=== PATIENT | female | born 1965 | race Caucasian/White ===

== ENCOUNTER 2017-11-16 21:00 | Emergency (ER) | payer BC, OTHER ==
[~2017-11-16] VITALS: Ht 165.1 cm; Wt 86.2 kg
[~2017-11-16 21:00] MED LIST: DULO60CA7 PO; ESOM40CA PO; FURO-80 PO
--- NOTE | 2017-11-16 21:25 | NUR ---
ORTHOSTATIC BP LYIN/91 W/ HR 64 SITTIN/85 W/ HR 63 STANDI/82 W/ HR 81 DR CRAIG NOTIFED
[2017-11-16 21:40] VITALS: BP 178/91
--- NOTE | 2017-11-16 21:50 | ER.PDOC ---
General Chief Complaint: Syncope Stated Complaint: LIGHTHEADEDNESS TRAVEL OUT OF US: No Time seen by MD: 21:42 Source: patient Exam Limitations: no limitations History of Present Illness Initial Comments Gen weakness, light headed. Difficulty getting a full breath in. Occas numbness and tingling arms and handsl. No chest discomfort. No nausea, no diaph. Admits increased stress on job. Timing/Duration: other (1 month. Not getting worse.) Severity: mild, moderate Associated Symptoms: denies symptoms Allergies: Coded Allergies: No Known Allergies (Unverified , 02/22/16) Home Meds Reported Medications Esomeprazole Magnesium (NEXIUM) 40 Mg Capsule.dr, 1 CAP PO DAILY, #30 CAP 5 Refills 02/22/16 Duloxetine Hcl (CYMBALTA) 60 Mg Capsule.dr, 1 CAP PO DAILY, #90 CAP 3 Refills 02/22/16 Furosemide (LASIX) 40 Mg Tablet, 1 TAB PO DAILY, #90 TAB 1 Refill 02/22/16 Past Medical History Medical History: hypertension Surgical History: appendectomy, hysterectomy, other LMP (females 10-50): hysterectomy Social History Smoking: non-smoker Alcohol Use: occassionally Drug Use: none Review of Systems Constitutional: see HPI EENTM: no symptoms reported Respiratory: see HPI; denies cough Cardiovascular: see HPI; denies chest pain Gastrointestinal: no symptoms reported Genitourinary: no symptoms reported Psychiatric/Neurological: see HPI, anxiety All Other Systems: Reviewed and Negative Physical Exam General Appearance: No Apparent Distress, Anxious EENT: eyes nml inspection, nml ENT inspection Neck: Non-Tender, Full Range of Motion, Normal Inspection Respiratory: chest non-tender, lungs clear, normal breath sounds (Pt. 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0 % (0.2-0.6) Total Hemoglobin 13.8 % (13.5-17.5) Total Oxygen Concentration 19.2 % (13.5-17.5) Lactic Acid (Blood Gas) 1.3 MMOL/L (0.5-1.0) Blood Gas Temperature 37.0 FiO2 0.21 % (20-101) Bicarbonate 22.4 mmol/L (23-27) White Blood Count 8.0 10^3/uL (4.5-11.0) Red Blood Count 4.17 10^6/uL (4.00-5.20) Hemoglobin 12.6 g/dL (12.0-15.0) Hematocrit 37.7 % (36.0-46.0) Mean Corpuscular Volume 90.4 fL (78-100) Mean Corpuscular Hemoglobin 30.2 pg (26-34) Mean Corpuscular Hemoglobin Concent 33.4 g/dL (33-37) Red Cell Distribution Width 12.6 % (11.5-14.5) Platelet Count 263 10^3/uL (150-400) Mean Platelet Volume 11.1 fL (7.8-11.0) Neutrophils (%) (Auto) 63.3 % (41.0-85.0) Lymphocytes (%) (Auto) 27.7 % (24.0-44.0) Monocytes (%) (Auto) 6.5 % (5.0-12.0) Neutrophils # (Auto) 5.0 10^3/uL (1.8-7.7) Lymphocytes # (Auto) 2.2 10^3/uL (1.0-4.8) Monocytes # (Auto) 0.5 10^3/uL (0.3-0.8) Absolute Immature Granulocyte (auto 0.02 10^3 u/L (0-2) Eosinophils % 2.1 % (0.0-5.0) Basophils % 0.1 % (0.0-0.2) Basophils # 0.0 10^3/uL (0.0-0.1) Eosinophil Count 0.2 10^3/uL (0.0-0.2) Prothrombin Time 9.3 SEC (9.8-11.9) Prothrombin Time INR (Non-Therap) 0.9 Sodium Level 141 mmol/L (132-145) Potassium Level 3.2 mmol/L (3.6-5.2) Chloride Level 102.0 mmol/L (96-109) Carbon Dioxide Level 28.2 mmol/L (20.0-32) Anion Gap 14.0 Blood Urea Nitrogen 14 mg/dL (7-18) Creatinine 0.93 mg/dL (0.59-1.40) Estimated GFR () 76.6 (>/=60) BUN/Creatinine Ratio 15.0 Glucose Level 123 mg/dL (70-110) Calcium Level 9.0 mg/dL (8.4-10.5) Total Bilirubin 0.4 mg/dL (0.2-1.0) Aspartate Amino Transf (AST/SGOT) 59 U/L (0-35) Alanine Aminotransferase (ALT/SGPT) 106 U/L (12-78) Alkaline Phosphatase 77 U/L (50-136) Troponin I < 0.02 ng/mL (0.00-0.05) Total Protein 7.4 g/dL (6.4-8.2) Albumin 3.6 g/dL (3.4-5.0) Globulin 3.8 Percent Immature Gran (Cell Imm) 0.30 % (0.00-0.50) Urine Collection Type UNKNOWN Urine Color YELLOW (YELLOW) Urine Appearance CLEAR (CLEAR) Urine Bilirubin NEGATIVE MG/DL (NEGATIVE) Urine Ketones NEGATIVE (NEGATIVE) Urine Specific [place] 1.015 (1.005-1.035) Urine pH 7 (5.0-6.0) Urine Protein NEGATIVE (NEGATIVE) Urine Urobilinogen NORMAL (NEGATIVE) Urine Nitrate NEGATIVE (NEGATIVE) Urine Leukocyte Esterase NEGATIVE (NEGATIVE) Urine Blood NEGATIVE (NEGATIVE) Urine Glucose NORMAL (NEGATIVE) Progress Progress Troponin, EKG nml. Atypical prsentation for cardiac etiology. More typical for anxiety. ABG c/w hyperventilation with resp alkylosis. Remainder labs and UA nml. EKG/XRAY/CT/US EKG: NSR EKG Comments: 63/min. Nml axis, nml EKG. XRAY: chest XRAY Comments: nml Course Vitals & review Data Vital Sign - Last 24 Hours 11/16/17 11/16/17 11/16/17 11/16/17 21:34 21:34 21:40 22:47 Temp 98.1 98.1 98.1 98.1 98.1 98.1 Pulse 67 67 67 62 Resp 16 16 16 16 B/P (MAP) 178/91 (120) 132/77 (95) Pulse Ox 97 97 98 O2 Delivery Room Air Room Air Room Air Laboratory Tests Test 11/16/17 21:45 11/16/17 21:52 11/16/17 22:43 Blood Gas Sample Site LEFT RADIAL ARTERY Blood Gas pH 7.718 Blood Gas PCO2 17.4 mmHg Blood Gas PO2 116.1 mmHg Blood Gas HCO3 21.9 mmol/L Blood Gas Base Excess 4.7 mmol/L Quentin Test POSITIVE Arterial Blood Oxygen Saturation 98.5 % Deoxyhemoglobin 1.5 % Carboxyhemoglobin 0.4 % Methemoglobin 0.0 % Total Hemoglobin 13.8 % Total Oxygen Concentration 19.2 % Lactic Acid (Blood Gas) 1.3 MMOL/L Blood Gas Temperature 37.0 FiO2 0.21 % Bicarbonate 22.4 mmol/L White Blood Count 8.0 10^3/uL Red Blood Count 4.17 10^6/uL Hemoglobin 12.6 g/dL Hematocrit 37.7 % Mean Corpuscular Volume 90.4 fL Mean Corpuscular Hemoglobin 30.2 pg Mean Corpuscular Hemoglobin Concent 33.4 g/dL Red Cell Distribution Width 12.6 % Platelet Count 263 10^3/uL Mean Platelet Volume 11.1 fL Neutrophils (%) (Auto) 63.3 % Lymphocytes (%) (Auto) 27.7 % Monocytes (%) (Auto) 6.5 % Neutrophils # (Auto) 5.0 10^3/uL Lymphocytes # (Auto) 2.2 10^3/uL Monocytes # (Auto) 0.5 10^3/uL Absolute Immature Granulocyte (auto 0.02 10^3 u/L Eosinophils % 2.1 % Basophils % 0.1 % Basophils # 0.0 10^3/uL Eosinophil Count 0.2 10^3/uL Prothrombin Time 9.3 SEC Prothrombin Time INR (Non-Therap) 0.9 Sodium Level 141 mmol/L Potassium Level 3.2 mmol/L Chloride Level 102.0 mmol/L Carbon Dioxide Level 28.2 mmol/L Anion Gap 14.0 Blood Urea Nitrogen 14 mg/dL Creatinine 0.93 mg/dL Estimated GFR () 76.6 BUN/Creatinine Ratio 15.0 Glucose Level 123 mg/dL Calcium Level 9.0 mg/dL Total Bilirubin 0.4 mg/dL Aspartate Amino Transf (AST/SGOT) 59 U/L Alanine Aminotransferase (ALT/SGPT) 106 U/L Alkaline Phosphatase 77 U/L Troponin I < 0.02 ng/mL Total Protein 7.4 g/dL Albumin 3.6 g/dL Globulin 3.8 Percent Immature Gran (Cell Imm) 0.30 % Urine Collection Type UNKNOWN Urine Color YELLOW Urine Appearance CLEAR Urine Bilirubin NEGATIVE MG/DL Urine Ketones NEGATIVE Urine Specific [place] 1.015 Urine pH 7 Urine Protein NEGATIVE Urine Urobilinogen NORMAL Urine Nitrate NEGATIVE Urine Leukocyte Esterase NEGATIVE Urine Blood NEGATIVE Urine Glucose NORMAL Departure Time of Disposition: 22:57 Disposition: 01 HOME, SELF-CARE Impression: Primary Impression: Anxiety Additional Impression: Hyperventilation syndrome Condition: Stable Patient Instructions: Anxiety and Panic Attacks Referrals: KRISS ONEAL MD (PCP) PRIMARY CARE PROVIDER Additional Instructions: No caffeine or other stimulant drugs or medications. See your doctor in 2 to 3 days for recheck. Return if worse. Duration or Time Spent with Pa: 120 CRESCENCIO CRAIG DO Nov 16, 2017 21:50
[2017-11-16 22:05] LABS: BASOPHIL % 0.1 % (0.0-0.2); EOSINOPHIL # 0.2 10^3/uL (0.0-0.2); EOSINOPHIL % 2.1 % (0.0-5.0); HEMOGLOBIN 12.6 g/dL (12.0-15.0); LYMPHOCYTES # 2.2 10^3/uL (1.0-4.8); LYMPHOCYTES % 27.7 % (24.0-44.0); MEAN CELL HGB 30.2 pg (26-34); MEAN CELL HGB CONCENTRATION 33.4 g/dL (33-37); MEAN CORP VOLUME 90.4 fL (78-100); MEAN PLATELET VOLUME 11.1 fL (7.8-11.0); MONOCYTES # 0.5 10^3/uL (0.3-0.8); MONOCYTES % 6.5 % (5.0-12.0); NEUTROPHILS % 63.3 % (41.0-85.0); RED CELL DISTRIBUTION WIDTH 12.6 % (11.5-14.5)
--- NOTE | 2017-11-16 22:16 | DIREP ---
PROCEDURE:CHEST 1 VIEW COMPARISON:[facility], CR, XRAY CHEST SINGLE VW, 02/22/2016, 06:19 PM. INDICATIONS:SOB FINDINGS: LUNGS/PLEURA:No significant pulmonary parenchymal abnormalities. No effusions. VASCULATURE:Normal. Unremarkable pulmonary vasculature. CARDIAC:Normal. No cardiac silhouette abnormality or cardiomegaly. MEDIASTINUM:Normal. No visible mass or adenopathy. BONES:Normal. No fracture or visible bony lesion. OTHER:Negative. CONCLUSION:No acute cardiopulmonary findings. Dictated by: Camacho Bautista M.D. on 11/16/2017 at 10:14 PM
[2017-11-16 22:21] LABS: ABG PCO2 17.4 mmHg (35.0-45.0); ABG PH 7.718 (7.350-7.450); BE(B) 4.7 mmol/L (-2.0-2.0); HCO3act 21.9 mmol/L (22.0-26.0); pO2 116.1 mmHg (75.0-100.0)
[2017-11-16 22:29] LABS: ALANINE AMINOTRANSFERASE(ML) 106 U/L (12-78); ALKALINE PHOSPHATASE 77 U/L (50-136); ASPARTATE AMINO TRANSFERASE 59 U/L (0-35); CARBON DIOXIDE 28.2 mmol/L (20.0-32); GLUCOSE 123 mg/dL (70-110)
--- NOTE | 2017-11-16 22:30 | NUR ---
RESTROOM TAKEN TO RESTROOM VIA WHEELCHAIR, STATES SHE IS FEELING A LITTLE BIT BETTER NOW THAT SHE HAS RESTED IN THE BED. TAKEN BACK TO ROOM, RECONNECTED TO BEDSIDE MONITOR
--- NOTE | 2017-11-16 22:31 | PCM.EKG ---
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
[2017-11-16 22:47] VITALS: BP 132/77
[2017-11-16 22:49] LABS: BILIRUBIN,URINE NEGATIVE (NEGATIVE); UROBILINOGEN,URINE NORMAL (NEGATIVE)
[2017-11-16 22:50] LABS: APPEARANCE,URINE CLEAR (CLEAR); UA COLOR YELLOW (YELLOW)
[2017-11-16] MEDS ORDERED: ATIVAN PO STA (22:55)
[2017-11-16] MEDS ORDERED: ATIVAN ONE (23:27)
[2017-11-17 00:05] VITALS: BP 132/77
== END 2017-11-16 23:32 | disposition home or self-care (01) ==
LOC: ER 21:00
DX: F41.9 Anxiety disorder, unspecified (principal); F45.8 Other somatoform disorders; R79.1 Abnormal coagulation profile; I10 Essential (primary) hypertension; Z90.710 Acquired absence of both cervix and uterus; Z90.49 Acquired absence of other specified parts of digestive tract; Z79.899 Other long term (current) drug therapy
CPT/HCPCS: 36415; 71045; 80053; 81002; 82803; 84484; 85025; 85610; 93005; 99285

== ENCOUNTER 2017-12-01 18:10 | Emergency (ER) | payer OTHER, BC ==
[~2017-12-01] VITALS: Ht 165.1 cm; Wt 86.2 kg
[2017-12-01 18:26] VITALS: BP 159/92
--- NOTE | 2017-12-01 18:30 | NUR ---
BLANKET WARM BLANKETS WERE PROVIDED TO PATIENT
[2017-12-01] MEDS ORDERED: NS 1000ML 1,000 ML IV STA (18:42)
[2017-12-01 18:45] VITALS: BP 166/104
[2017-12-01] MEDS ORDERED: NS 1000ML 1,000 ML ONE (18:46)
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
--- NOTE | 2017-12-01 18:56 | PCM.EKG ---
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
[2017-12-01 18:57] LABS: BASOPHIL % 0.3 % (0.0-0.2); EOSINOPHIL # 0.2 10^3/uL (0.0-0.2); EOSINOPHIL % 1.7 % (0.0-5.0); HEMOGLOBIN 13.4 g/dL (12.0-15.0); LYMPHOCYTES # 1.8 10^3/uL (1.0-4.8); LYMPHOCYTES % 20.6 % (24.0-44.0); MEAN CELL HGB 30.2 pg (26-34); MEAN CELL HGB CONCENTRATION 33.8 g/dL (33-37); MEAN CORP VOLUME 89.2 fL (78-100); MEAN PLATELET VOLUME 11.5 fL (7.8-11.0); MONOCYTES # 0.5 10^3/uL (0.3-0.8); MONOCYTES % 5.5 % (5.0-12.0); NEUTROPHIL # 6.2 10^3/uL (1.8-7.7); NEUTROPHILS % 71.8 % (41.0-85.0); RED CELL DISTRIBUTION WIDTH 12.9 % (11.5-14.5); WHITE BLOOD CELL 8.7 10^3/uL (4.5-11.0)
[2017-12-01 19:00] VITALS: BP 166/102
[2017-12-01 19:11] LABS: CALCIUM 9.5 mg/dL (8.4-10.5); CARBON DIOXIDE 27.6 mmol/L (20.0-32)
[2017-12-01 19:15] VITALS: BP 178/103
--- NOTE | 2017-12-01 19:20 | NUR ---
CT PT. GOING TO CT
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
--- NOTE | 2017-12-01 20:30 | NUR ---
C-Collar C-Collar was dismissed with confirmation by CT and Dr. Thorne
--- NOTE | 2017-12-01 20:41 | NUR ---
IV IV removed, tip intact. Cotton ball placed over IV site with coban to secure cotton. Instructed pt. to remove when she arrives home. Pt. expressed understand
[2017-12-01 21:45] VITALS: BP 178/103
== END 2017-12-01 20:45 | disposition home or self-care (01) ==
LOC: EDBD 18:10 → ER 18:10
DX: S20.219A Contusion of unspecified front wall of thorax, initial encounter (principal); S00.93XA Contusion of unspecified part of head, initial encounter; S10.93XA Contusion of unspecified part of neck, initial encounter; S30.1XXA Contusion of abdominal wall, initial encounter; R79.1 Abnormal coagulation profile; K21.9 Gastro-esophageal reflux disease without esophagitis; I10 Essential (primary) hypertension; Z79.899 Other long term (current) drug therapy; Z90.49 Acquired absence of other specified parts of digestive tract; Z90.710 Acquired absence of both cervix and uterus; V89.9XXA Person injured in unspecified vehicle accident, initial encounter; Y93.89 Activity, other specified; Y92.488 Other paved roadways as the place of occurrence of the external cause; Y99.8 Other external cause status
CPT/HCPCS: 36415; 70450; 71260; 72125; 74177; 80053; 84484; 85025; 85610; 85730; 93005; 99285; J7030; Q9965

== ENCOUNTER 2019-06-05 03:33 | Emergency (ER) | payer BC, OTHER ==
[~2019-06-05] VITALS: Ht 165.1 cm; Wt 81.6 kg
--- NOTE | 2019-06-05 03:42 | ER.PDOC ---
General Chief Complaint: Requesting Medical Care Stated Complaint: DIZZINESS, NAUSEA Time seen by MD: 03:42 Source: patient Exam Limitations: no limitations History of Present Illness Initial Comments dizziness like the room is spinning to the left, worse with head movement or movement of the eyes, no lightheadedness like fainting, no chest pain or palpita tions, no ear pain or ringing in the ears or hearing loss, no headache. no weakness or sensation change, symptoms since 8am yesterday Occurred: other Associated Symptoms: spinning Usually: walks w/o assistance Worsened By: movement of head Allergies: Coded Allergies: No Known Allergies (Unverified , 02/22/16) Home Meds Reported Medications Esomeprazole Magnesium (NEXIUM) 40 Mg Capsule.dr, 1 CAP PO DAILY, #30 CAP 5 Refills 02/22/16 Duloxetine Hcl (CYMBALTA) 60 Mg Capsule.dr, 1 CAP PO DAILY, #90 CAP 3 Refills 02/22/16 Furosemide (LASIX) 40 Mg Tablet, 1 TAB PO DAILY, #90 TAB 1 Refill 02/22/16 Past Medical History Surgical History: appendectomy, hysterectomy Social History Drug Use: none Review of Systems Constitutional: denies chills, denies fever Eyes: denies blindness Ears: dizziness; denies pain Nose: denies congestion Mouth: denies pain Throat: denies neck stiffness Respiratory: denies shortness of breath Cardiovascular: denies chest pain, denies irregular heart rate, denies lightheadedness, denies palpitations, denies syncope Gastrointestinal: denies abdominal pain, denies diarrhea; nausea; denies vomiting Genitourinary: denies pain Musculoskeletal: denies neck pain Physical Exam General Appearance: alert, no distress EENT: PERRL, nystagmus Neck: supple Respiratory: no resp distress, breath sounds nml CVS: reg rate & rhythm, heart sounds.nml Abdomen: non-tender Skin: color nml Extremities: non-tender Neuro/Psych: nml orientation Cranial Nerves: nml as tested, no evidence of acute CVA Cerebellar: nml as tested Sensorimotor: nml motor Results/Orders Results/Orders Orders - GRICELDA RAINES MD Cbc With Auto Diff (06/05/19 03:50) Comprehensive Metabolic Panel (06/05/19 03:50) Creatine Kinase (06/05/19 03:50) Creatine Kinase Mb (06/05/19 03:50) Troponin I (06/05/19 03:50) Xr Chest 1v (06/05/19 03:50) Ekg-Routine (06/05/19 03:50) Saline Lock (06/05/19 03:50) Ct Head Wo Contrast (06/05/19 03:50) Diphenhydramine Hcl (Benadryl) (06/05/19 03:50) Ondansetron Hcl/Pf (Zofran) (06/05/19 04:00) Vital Signs Date Time Temp Pulse Resp B/P (MAP) Pulse Ox O2 Delivery O2 Flow Rate FiO2 06/05/19 03:47 97.6 54 16 06/05/19 03:47 97.6 54 16 179/87 (117) 99 Room Air 06/05/19 03:47 97.6 54 16 99 Administered Medications Medications (Trade) Dose Ordered Sig/Jeramie Route PRN Reason Start Time Stop Time Status Last Admin Dose Admin Diphenhydramine HCl (Benadryl) 25 mg STAT STAT IV 06/05/19 03:50 06/05/19 03:51 UNV 06/05/19 04:03 25 MG Ondansetron HCl (Zofran) 4 mg Q4H PRN IV NAUSEA / VOMITING 06/05/19 04:00 07/05/19 03:59 UNV 06/05/19 04:03 4 MG Laboratory Tests Test 06/05/19 03:58 White Blood Count 11.6 10^3/uL (4.5-11.0) H Red Blood Count 4.52 10^6/uL (4.00-5.20) Hemoglobin 13.1 g/dL (12.0-15.0) Hematocrit 39.7 % (36.0-46.0) Mean Corpuscular Volume 87.8 fL (78-100) Mean Corpuscular Hemoglobin 29.0 pg (26-34) Mean Corpuscular Hemoglobin Concent 33.0 g/dL (33-36.5) Red Cell Distribution Width 12.3 % (11.5-14.5) Platelet Count 310 10^3/uL (150-400) Mean Platelet Volume 11.9 fL (7.8-11.0) H Neutrophils (%) (Auto) 77.3 % (41.0-85.0) Lymphocytes (%) (Auto) 15.0 % (24.0-44.0) L Monocytes (%) (Auto) 6.4 % (5.0-12.0) Neutrophils # (Auto) 9.0 10^3/uL (1.8-7.7) H Lymphocytes # (Auto) 1.75 10^3/uL1 (1.0-4.8) Monocytes # (Auto) 0.7 10^3/uL (0.3-0.8) Absolute Immature Granulocyte (auto 0.03 10^3 u/L (0-2) Absolute Eosinophils (auto) 0.1 10^3/uL (0.0-0.2) Immature Granulocytes % 0.30 % (0.00-0.50) Eosinophils % 0.6 % (0.0-5.0) Basophils % 0.4 % (0.0-0.2) H Basophils # 0.1 10^3/uL (0.0-0.1) Sodium Level 142 mmol/L (132-145) Potassium Level 3.8 mmol/L (3.6-5.2) Chloride Level 104.0 mmol/L (96-109) Carbon Dioxide Level 31.7 mmol/L (20.0-32) Anion Gap 10.1 Blood Urea Nitrogen 17 mg/dL (7-18) Creatinine 0.94 mg/dL (0.59-1.40) Estimated GFR () 75.4 (>/=60) Est GFR (CKD-EPI)(Non-Afr Mongolian) 62.3 (>/=60) BUN/Creatinine Ratio 18.0 Glucose Level 128 mg/dL (70-110) H Calcium Level 9.9 mg/dL (8.4-10.5) Total Bilirubin 0.5 mg/dL (0.2-1.0) Aspartate Amino Transferase (AST) 10 U/L (0-35) Alanine Aminotransferase (ALT) 23 U/L (12-78) Alkaline Phosphatase 68 U/L (50-136) Total Creatine Kinase 52 U/L (26-192) Creatine Kinase MB 1.3 ng/mL (0.5-3.6) Troponin I < 0.02 ng/mL (0.00-0.05) Total Protein 6.7 g/dL (6.4-8.2) Albumin 3.5 g/dL (3.4-5.0) Globulin 3.2 Departure Time of Disposition: 04:32 Disposition: 01 HOME, SELF-CARE Impression: Primary Impression: Vertigo Additional Impression: Bradycardia Condition: Stable Patient Instructions: Bradycardia, Vertigo Referrals: PARISA KU DO (PCP) PRIMARY CARE PROVIDER Additional Instructions: return for any worsening symptoms Duration or Time Spent with Pa: 20 Problem Qualifiers GRICELDA RAINES MD Jun 05, 2019 03:42
[2019-06-05 03:47] VITALS: BP 179/87
[2019-06-05] MEDS ORDERED: BENADRYL IV STA (03:50)
[2019-06-05] MEDS ORDERED: BENADRYL ONE (03:58)
[2019-06-05] MEDS ORDERED: ZOFRAN ONE (03:58)
[2019-06-05] MEDS ORDERED: ZOFRAN IV PRN (04:00)
--- NOTE | 2019-06-05 04:03 | NUR ---
TO CT PATIENT TO CT VIA STRETCHER WITH MUKESH,CT
[2019-06-05 04:11] LABS: BASOPHIL # 0.1 10^3/uL (0.0-0.1); BASOPHIL % 0.4 % (0.0-0.2); EOSINOPHIL # 0.1 10^3/uL (0.0-0.2); EOSINOPHIL % 0.6 % (0.0-5.0); LYMPHOCYTES # 1.75 10^3/uL1 (1.0-4.8); MONOCYTES # 0.7 10^3/uL (0.3-0.8); MONOCYTES % 6.4 % (5.0-12.0); NEUTROPHILS % 77.3 % (41.0-85.0); PLATELET COUNT 310 10^3/uL (150-400); RED CELL DISTRIBUTION WIDTH 12.3 % (11.5-14.5)
--- NOTE | 2019-06-05 04:21 | DIREP ---
PROCEDURE:CT HEAD OR BRAIN W/O CONTRAST COMPARISON:[facility], CT, CT HEAD BRAIN W/O CONTRAST, 12/01/2017, 07:29 PM. INDICATIONS:dizziness TECHNIQUE:CT images were created without intravenous contrast. FINDINGS: VENTRICLES:The ventricles are normal in size and configuration. CEREBRUM:Normal cerebral morphology with appropriate travis white matter differentiation. CEREBELLUM:Negative. BRAINSTEM:Negative. BASAL CISTERNS:Negative. HEMORRHAGE:No MASS LESION:No ACUTE INFARCT:No SKULL:Normal. SINUSES:Normal. OTHER:None CONCLUSION:No acute intracranial findings. Dictated by: Camacho Bautista M.D. on 06/05/2019 at 04:18 AM
--- NOTE | 2019-06-05 04:22 | DIREP ---
PROCEDURE:CHEST 1 VIEW COMPARISON:[facility], CR, XRAY CHEST SINGLE VW, 11/16/2017, 09:34 PM. [facility], CR, XRAY CHEST SINGLE VW, 02/22/2016, 06:19 PM. INDICATIONS:dizziness FINDINGS: LUNGS/PLEURA:No significant pulmonary parenchymal abnormalities. No effusions. VASCULATURE:Normal. Unremarkable pulmonary vasculature. CARDIAC:Normal. No cardiac silhouette abnormality or cardiomegaly. MEDIASTINUM:Normal. No visible mass or adenopathy. BONES:Normal. No fracture or visible bony lesion. OTHER:Negative. CONCLUSION:No acute cardiopulmonary findings. Dictated by: Camacho Bautista M.D. on 06/05/2019 at 04:20 AM
--- NOTE | 2019-06-05 04:25 | PCM.EKG ---
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
[2019-06-05 04:29] LABS: ALANINE AMINOTRANSFERASE(ML) 23 U/L (12-78); ALKALINE PHOSPHATASE 68 U/L (50-136); ASPARTATE AMINO TRANSFERASE 10 U/L (0-35); CALCIUM 9.9 mg/dL (8.4-10.5); CARBON DIOXIDE 31.7 mmol/L (20.0-32); GLUCOSE 128 mg/dL (70-110)
[2019-06-05 04:37] VITALS: BP 156/92
== END 2019-06-05 04:37 | disposition home or self-care (01) ==
LOC: ER 03:33
DX: R42 Dizziness and giddiness (principal); R00.1 Bradycardia, unspecified
CPT/HCPCS: 36415; 70450; 71045; 80053; 82550; 82553; 84484; 85025; 93005; 96374; 96375; 99285; J1200; J2405

== ENCOUNTER 2019-10-25 02:54 | Emergency (ER) | payer BC ==
[~2019-10-25] VITALS: Ht 165.1 cm; Wt 79.4 kg
[2019-10-25 03:09] VITALS: BP 125/77
--- NOTE | 2019-10-25 03:26 | ER.PDOC ---
General Chief Complaint: General Complaint Stated Complaint: HIGH BLOOD SUGAR Time seen by MD: 03:10 Source: patient Exam Limitations: no limitations History of Present Illness Initial Comments Acute onset at work of confusion, light-headedness. Noted tingling in B hands. No speech abnormalities. No weakness. Light-headedness worsened upon standing. She checked her blood sugar and noted it to be 281. States symptoms lasted approx 30 min before gradually abating. Now feels only slightly light-headed and "just not quite right". States she is not taking her med for NIDDM because she was prescribed a different medication which required pre-approval and she will fill it in AM. Hx "some kind of heart rhythm issue". Due for Echo with Dr. Vásquez. Recently increased Atenolol from 25mg to 50mg. 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) Severity: moderate Associated Symptoms: light headness, sense of confusion Decreased Ability to Stand: off balance Usually: walks w/o assistance Worsened By: changing position Prior symptoms/Treatment: No Similar symptoms previous; Recenly Seen, Treated by Doctor Allergies: Coded Allergies: No Known Allergies (Unverified , 02/22/16) Home Meds Reported Medications Esomeprazole Magnesium (NEXIUM) 40 Mg Capsule.dr, 1 CAP PO DAILY, #30 CAP 5 Refills 02/22/16 Duloxetine Hcl (CYMBALTA) 60 Mg Capsule.dr, 1 CAP PO DAILY, #90 CAP 3 Refills 02/22/16 Furosemide (LASIX) 40 Mg Tablet, 1 TAB PO DAILY, #90 TAB 1 Refill 02/22/16 Past Medical History Medical History: cardiac problems, diabetes Surgical History: appendectomy, hysterectomy Social History Alcohol Use: none Drug Use: none Review of Systems Constitutional: no symptoms reported Eyes: no symptoms reported Ears: no symptoms reported Nose: no symptoms reported Mouth: no symptoms reported Throat: no symptoms reported Respiratory: no symptoms reported Cardiovascular: no symptoms reported Gastrointestinal: no symptoms reported Genitourinary: no symptoms reported Musculoskeletal: no symptoms reported Skin: no symptoms reported Psychiatric/Neurological: see HPI Physical Exam General Appearance: alert, no distress EENT: nml eye inspection, PERRL, no nystagmus, nml ENT inspection, pharynx nml, TM's nml Neck: supple Respiratory: no resp distress, breath sounds nml CVS: reg rate & rhythm, heart sounds.nml Abdomen: non-tender, no organomegaly, no distention Skin: color nml, no rash, warm/dry Extremities: non-tender, nml ROM, no pedal edema Neuro/Psych: nml orientation, nml speech/cognition, nml mood/affect Cranial Nerves: nml as tested, no evidence of acute CVA Cerebellar: nml as tested Sensorimotor: nml motor, nml sensation Results/Orders Results/Orders Orders - MAICO HATCH MD Cbc With Auto Diff (10/25/19 03:23) Comprehensive Metabolic Panel (10/25/19 03:23) Creatine Kinase (10/25/19 03:23) Creatine Kinase Mb (10/25/19 03:23) Troponin I (10/25/19 03:23) Ekg-Routine (10/25/19 03:23) Saline Lock (10/25/19 03:23) Ct Head Wo Contrast (10/25/19 03:23) Insulin Regular, Human (Humulin R) (10/25/19 03:30) Bedside Glucose (10/25/19 03:06) Vital Signs Date Time Temp Pulse Resp B/P (MAP) Pulse Ox O2 Delivery O2 Flow Rate FiO2 10/25/19 04:10 98.0 51 16 110/62 (78) 97 Room Air 10/25/19 03:09 98.0 56 16 100 10/25/19 03:09 98.0 56 16 125/77 (93) 100 Room Air 10/25/19 03:09 98.0 56 16 Administered Medications Medications (Trade) Dose Ordered Sig/Jeramie Route PRN Reason Start Time Stop Time Status Last Admin Dose Admin Insulin Human Regular (Humulin R) 4 unit OT ONCE IV 10/25/19 03:30 10/25/19 03:31 UNV 10/25/19 03:38 4 UNIT Laboratory Tests Test 10/25/19 03:06 10/25/19 03:32 POC Glucose 213 (70 - 110) H White Blood Count 10.1 10^3/uL (4.5-11.0) Red Blood Count 3.73 10^6/uL (4.00-5.20) L Hemoglobin 12.0 g/dL (12.0-15.0) Hematocrit 34.0 % (36.0-46.0) L Mean Corpuscular Volume 91.2 fL (78-100) Mean Corpuscular Hemoglobin 32.2 pg (26-34) Mean Corpuscular Hemoglobin Concent 35.3 g/dL (33-36.5) Red Cell Distribution Width 12.4 % (11.5-14.5) Platelet Count 297 10^3/uL (150-400) Mean Platelet Volume 11.7 fL (7.8-11.0) H Neutrophils (%) (Auto) 66.6 % (41.0-85.0) Lymphocytes (%) (Auto) 24.6 % (24.0-44.0) Monocytes (%) (Auto) 6.4 % (5.0-12.0) Neutrophils # (Auto) 6.7 10^3/uL (1.8-7.7) Lymphocytes # (Auto) 2.48 10^3/uL1 (1.0-4.8) Monocytes # (Auto) 0.7 10^3/uL (0.3-0.8) Absolute Immature Granulocyte (auto 0.02 10^3 u/L (0-2) Absolute Eosinophils (auto) 0.1 10^3/uL (0.0-0.2) Immature Granulocytes % 0.20 % (0.00-0.50) Eosinophils % 1.4 % (0.0-5.0) Basophils % 0.8 % (0.0-0.2) H Basophils # 0.1 10^3/uL (0.0-0.1) Sodium Level 134 mmol/L (132-145) Potassium Level 2.5 mmol/L (3.6-5.2) L Chloride Level 94.0 mmol/L (96-109) L Carbon Dioxide Level 31.6 mmol/L (20.0-32) Anion Gap 10.9 Blood Urea Nitrogen 17 mg/dL (7-18) Creatinine 1.26 mg/dL (0.59-1.40) Estimated GFR () 53.5 (>/=60) Est GFR (CKD-EPI)(Non-Afr [place]ican) 44.3 (>/=60) BUN/Creatinine Ratio 13.0 Glucose Level 207 mg/dL (70-110) H Calcium Level 9.4 mg/dL (8.4-10.5) Total Bilirubin 0.3 mg/dL (0.2-1.0) Aspartate Amino Transferase (AST) 20 U/L (0-35) Alanine Aminotransferase (ALT) 37 U/L (12-78) Alkaline Phosphatase 62 U/L (50-136) Total Creatine Kinase 72 U/L (26-192) Creatine Kinase MB 0.7 ng/mL (0.5-3.6) Troponin I < 0.02 ng/mL (0.00-0.05) Total Protein 7.5 g/dL (6.4-8.2) Albumin 3.6 g/dL (3.4-5.0) Globulin 3.9 Progress Progress Pt's heart rate persistently 49-55. Suspect adverse reaction to recent increase in Atenolol dose. Will recommend reducing dose to 25mg and follow up with Dr. Vásquez EKG/XRAY/CT/US EKG Comments: Sinus sam 56.TWI III Departure Time of Disposition: 04:31 Disposition: 01 HOME, SELF-CARE Impression: Primary Impression: Adverse reaction to beta-milagros Additional Impression: Hypokalemia Condition: Stable Referrals: MENDOZA KOEHLER MD (PCP) PRIMARY CARE PROVIDER Additional Instructions: Reduce Atenolol to 25mg/dose. Follow up with Dr. Vásquez and PCP Duration or Time Spent with Pa: 25 Problem Qualifiers Primary Impression: Adverse reaction to beta-milagros Encounter type: initial encounter Qualified Codes: T44.7X5A - Adverse effect of beta-adrenoreceptor antagonists, initial encounter MAICO HATCH MD Oct 25, 2019 03:26
--- NOTE | 2019-10-25 03:28 | NUR ---
CT CALLED CALLED [facility] FOR CT HEAD
[2019-10-25] MEDS ORDERED: HUMULIN R IV ONE (03:30)
[2019-10-25] MEDS ORDERED: HUMULIN R ONE (03:32)
[2019-10-25 03:48] LABS: BASOPHIL # 0.1 10^3/uL (0.0-0.1); BASOPHIL % 0.8 % (0.0-0.2); EOSINOPHIL # 0.1 10^3/uL (0.0-0.2); EOSINOPHIL % 1.4 % (0.0-5.0); LYMPHOCYTES # 2.48 10^3/uL1 (1.0-4.8); LYMPHOCYTES % 24.6 % (24.0-44.0); MEAN CORP HGB 32.2 pg (26-34); MONOCYTES # 0.7 10^3/uL (0.3-0.8); MONOCYTES % 6.4 % (5.0-12.0); NEUTROPHIL # 6.7 10^3/uL (1.8-7.7); NEUTROPHILS % 66.6 % (41.0-85.0); PLATELET COUNT 297 10^3/uL (150-400); RED CELL DISTRIBUTION WIDTH 12.4 % (11.5-14.5)
[2019-10-25 04:04] LABS: ALANINE AMINOTRANSFERASE(ML) 37 U/L (12-78); ALKALINE PHOSPHATASE 62 U/L (50-136); ASPARTATE AMINO TRANSFERASE 20 U/L (0-35); CALCIUM 9.4 mg/dL (8.4-10.5); CARBON DIOXIDE 31.6 mmol/L (20.0-32); GLUCOSE 207 mg/dL (70-110)
--- NOTE | 2019-10-25 04:08 | NUR ---
CRITICAL LAB CALLED, K 2.5. EDP NOTIFIED
--- NOTE | 2019-10-25 04:08 | DIREP ---
PROCEDURE:CT HEAD OR BRAIN W/O CONTRAST COMPARISON:[facility], CT, CT HEAD BRAIN W/O CONTRAST, 06/05/2019, 04:03 AM. [facility], CT, CT HEAD BRAIN W/O CONTRAST, 12/01/2017, 07:29 PM. INDICATIONS:Confusion/dizziness/B hands tingling TECHNIQUE:CT images were created without intravenous contrast. FINDINGS: VENTRICLES:The ventricles are normal in size and configuration. CEREBRUM:Normal cerebral morphology with appropriate travis white matter differentiation. CEREBELLUM:Negative. BRAINSTEM:Negative. BASAL CISTERNS:Negative. SKULL:Normal. SINUSES:Normal. OTHER:None CONCLUSION:No acute intracranial process. Dictated by: Joselin Roy M.D. on 10/25/2019 at 04:03 AM
[2019-10-25 04:10] VITALS: BP 110/62
[2019-10-25] MEDS ORDERED: KLOR-CON 10 PO ONE (04:24)
[2019-10-25] MEDS ORDERED: KLOR-CON 10 PO SCH (04:30)
--- NOTE | 2019-10-25 04:35 | NUR ---
IV DC'D TIP INTACT, NO BLEEDING
--- NOTE | 2019-10-25 08:30 | PCM.EKG ---
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
== END 2019-10-25 04:35 | disposition home or self-care (01) ==
LOC: ER 02:54
DX: E87.6 Hypokalemia (principal); E11.65 Type 2 diabetes mellitus with hyperglycemia; T44.7X5A Adverse effect of beta-adrenoreceptor antagonists, initial encounter; Z79.4 Long term (current) use of insulin; Z79.899 Other long term (current) drug therapy; Z90.710 Acquired absence of both cervix and uterus; Y92.89 Other specified places as the place of occurrence of the external cause
CPT/HCPCS: 36415; 70450; 80053; 82550; 82553; 82948 ×2; 84484; 85025; 93005; 96374; 99285; J1815; J3490